=== PATIENT | female | born 1990 | race Caucasian/White ===

== ENCOUNTER 2024-02-16 03:27 | Outpatient (CLI) | payer MEDICAID, SELFPAY ==
[2024-02-16 15:44] LABS: Abs Immature Grans 0.04 10^3/uL (0.0-0.06); Absolute Basophil Count 0.02 10^3/uL (0.0-0.2); Absolute Eosinophil Count 0.07 10^3/uL (0.0-0.7); Absolute Lymphocyte Count 2.07 10^3/uL (1.2-3.4); Absolute Monocyte Count 0.84 10^3/uL (0.1-0.8); Basophils % 0.2 %; Eosinophils % 0.6 %; HCT 36.5 % (36.0-46.0); HGB 12.1 g/dL (11.2-15.7); Immature Grans % 0.4 %; MCH 31.3 pg (27.0-33.0); MCHC 33.2 % (32.0-36.0); MCV 94 fL (80-95); MPV 10.2 fL (8.0-11.0); Monocytes % 7.7 %; Neutrophils % 72.1 %; Platelet Count 229 10^3/uL (130-400); RBC 3.87 10^6/uL (3.93-5.22); RDW 12.9 % (11.7-14.6); RDW-SD 44.1 fL; WBC 10.92 10^3/uL (4.4-10.8)
[2024-02-16 15:50] LABS: Glucose,1 Hr (Glucola) 82 mg/dL (80-140)
[2024-02-16 16:10] LABS: Absolute Neutrophil Count 7.87 10^3/uL (1.2-6.7)
[2024-02-16 16:22] LABS: COMMENT (LAB VIEW ONLY) 102.68 mg/dL; PROTEIN 11.1 mg/dL
[2024-02-16 18:03] LABS: ALT 19 U/L (14-59); AST 12 U/L (15-37); Albumin 2.8 g/dL (3.4-5.0); Alkaline Phosphatase 99 U/L (46-116); Anion Gap 8.1 mmol/L (3-11); BUN 10 mg/dL (7-18); CO2 25.9 mmol/L (21.0-32.0); CREATININE 0.6 mg/dL (0.55-1.02); Calcium 8.8 mg/dL (8.5-10.1); Chloride 102 mmol/L (98-107); Estimated GFR 122.99 (mL/min/1.73m2); Glucose 70 mg/dL (74-106); Potassium 3.7 mmol/L (3.5-5.1); Sodium 136 mmol/L (136-145); Total Protein 6.5 g/dL (6.4-8.2); Uric Acid 3.7 mg/dL (2.6-6.0)
== END 2024-02-16 03:28 | disposition home or self-care (01) ==
LOC: LBO 03:28
PROVIDERS: Visit Provider Midwife
DX: Z3A.28 28 weeks gestation of pregnancy (principal); Z13.1 Encounter for screening for diabetes mellitus; Z86.39 Personal history of other endocrine, nutritional and metabolic disease
CPT/HCPCS: 36415; 80053; 82950; 82565; 84156; 84550; 85025

== ENCOUNTER 2024-03-22 07:56 | Outpatient (CLI) | payer MEDICAID, SELFPAY ==
[2024-03-22 18:49] VITALS: BP 126/82; PULSE 90; TEMP 36.7
--- NOTE | 2024-03-23 08:51 | W.OBNST ---
Date of service: 03/23/24 Time of Service: 19:00 NST Evaluation Reason for NST Reasons for Nonstress Test: OTHER, SEE COMMENT Reason for NST Other: Obesity in Gestational Age Gestational Age in Weeks and Days: 34 Weeks and 3Days Test and Monitor Explained Test/Monitor Explained: Test Explained, Monitor Explained and Patient Verbalized Understanding Vital Signs Blood Pressure: 126/82 Pulse: 90 Temperature: 98.1 F Urine Results Urine Protein: Negative Urine Ketones: Negative Urine Glucose: Negative Urine Blood: Negative NST Information Date on Monitor: 03/22/24 Time on Monitor: 17:50 Date off Monitor: 03/22/24 Time off Monitor: 18:41 Total Time on Monitor: 51 NST Interventions: PO Hydration Contraction Frequency: None NST Evaluation Patient States Movement: Present FHR Baseline: 125 Variability: Moderate 6-25 bpm Accelerations: 15x15 Decelerations: None NST Results: Reactive Note Ultrasound Done: N/A. NST Note NST Reviewed and Verified by: Verenice Dugan
[2024-03-23 08:53] VITALS: BP 126/82; PULSE 90; TEMP 36.7
== END 2024-03-22 18:56 ==
LOC: BCD 08:00 → OBS 17:45
PROVIDERS: Visit Provider Obstetrics & Gynecology
DX: O99.213 Obesity complicating pregnancy, third trimester (principal); Z3A.34 34 weeks gestation of pregnancy
CPT/HCPCS: 59025

== ENCOUNTER 2024-03-29 07:50 | Outpatient (CLI) | payer MEDICAID, SELFPAY ==
[2024-03-29 18:34] VITALS: BP 134/84; PULSE 91; TEMP 37
--- NOTE | 2024-03-29 18:42 | W.OBNST ---
Date of service: 03/29/24 Time of Service: 18:42 NST Evaluation Reason for NST Reasons for Nonstress Test: OTHER, SEE COMMENT Reason for NST Other: Homerbirth Delivery Gestational Age Gestational Age in Weeks and Days: 35 Weeks and 4Days Vital Signs Blood Pressure: 134/84 Pulse: 91 Temperature: 98.6 F Urine Results Urine Protein: Negative Urine Ketones: Negative Urine Glucose: Negative Urine Blood: Negative NST Evaluation FHR Baseline: 145 NST Results: Questionable Note Ultrasound Done: Biophysical Profile Reason for Biophysical Profile: Non Reactive NST and Hypertension. Provider that performed the study: Kristi Guzman Is this a repeat study?: No Amniotic Fluid: 2 Largest Vertical Pocket: 7.3 Muscle Tone: 2 Body Movements: 2 Breathing Movements: 2 NST Results: Questionable Total Biophysical Profile Score: 8 Other Pertinent Findings: Presentation (Transverse) Coding for Biophysical Profile w/NST: Completed Exam, ANAY (13.2) Coding for ANAY w/NST: Completed Exam and Presentation Coding for Presentation w/NST: Completed Exam. NST Note Note: Inclusive nonstress test due to body habitus and baby movement. Biophysical profile performed at 8 out of 8. Appropriate amniotic fluid with deepest vertical pocket of 7.3. Baby is in the transverse head to the left position. NST Reviewed and Verified by: Kristi Guzman
[2024-03-29 18:44] VITALS: BP 134/84; PULSE 91; TEMP 37
== END 2024-03-29 18:45 ==
LOC: BCD 07:59 → OBS 17:58
PROVIDERS: Visit Provider Obstetrics & Gynecology Gynecology
DX: O36.8330 Maternal care for abnormalities of the fetal heart rate or rhythm, third trimester, not applicable or unspecified (principal); O16.3 Unspecified maternal hypertension, third trimester; Z3A.35 35 weeks gestation of pregnancy
CPT/HCPCS: 59025; 76818

== ENCOUNTER 2024-04-05 07:34 | Outpatient (CLI) | payer MEDICAID, SELFPAY ==
[2024-04-05 19:03] VITALS: BP 110/73; PULSE 92; TEMP 36.8
--- NOTE | 2024-04-06 10:25 | W.OBNST ---
Date of service: 04/05/24 Time of Service: 19:00 NST Evaluation Reason for NST Reasons for Nonstress Test: OTHER, SEE COMMENT Reason for NST Other: well being Gestational Age Gestational Age in Weeks and Days: 36 Weeks and 3Days Test and Monitor Explained Test/Monitor Explained: Test Explained Vital Signs Blood Pressure: 110/73 Pulse: 92 Temperature: 98.2 F NST Information Date on Monitor: 04/05/24 Time on Monitor: 17:55 Date off Monitor: 04/05/24 Time off Monitor: 18:25 Total Time on Monitor: 30 NST Interventions: None NST Evaluation Patient States Movement: Present FHR Baseline: 135 Variability: Absent Accelerations: 15x15 Decelerations: None NST Results: Reactive Note Ultrasound Done: Biophysical Profile Reason for Biophysical Profile: Equivocal NST. Provider that performed the study: Althea Harris Is this a repeat study?: Yes Amniotic Fluid: 2 Largest Vertical Pocket: 4.6 Muscle Tone: 2 Body Movements: 2 Breathing Movements: 2 NST Results: Reactive Total Biophysical Profile Score: 10 Other Pertinent Findings: Presentation (transverse. Head maternal L) Coding for Biophysical Profile w/NST: Completed Exam and ANAY Indication: Other Largest Vertical Pocket: 4.6 Total ANAY: 13.6 Other Pertinent Findings: Presentation (transverse lie. head maternal L ) Coding for ANAY w/NST: Completed Exam. NST Note Note: Pt will continue with weekly BPP NST Reviewed and Verified by: Althea Harris
[2024-04-06 10:26] VITALS: BP 110/73; PULSE 92; TEMP 36.8
== END 2024-04-05 18:20 | disposition home health service (06) ==
LOC: BCD 07:35 → OBS 18:05
PROVIDERS: Visit Provider Obstetrics & Gynecology Gynecology
DX: O36.8130 Decreased fetal movements, third trimester, not applicable or unspecified (principal); Z3A.36 36 weeks gestation of pregnancy
CPT/HCPCS: 59025; 76818

== ENCOUNTER 2024-04-12 06:58 | Outpatient (CLI) | payer MEDICAID, SELFPAY ==
[2024-04-12 18:38] VITALS: BP 115/64; TEMP 37
--- NOTE | 2024-04-12 19:59 | W.OBNST ---
Date of service: 04/12/24 Time of Service: 19:00 NST Evaluation Reason for NST Reasons for Nonstress Test: OTHER, SEE COMMENT Reason for NST Other: BMI Gestational Age Gestational Age in Weeks and Days: 37 Weeks and 4Days Test and Monitor Explained Test/Monitor Explained: Test Explained and Monitor Explained Vital Signs Blood Pressure: 115/64 Temperature: 98.6 F NST Information Date on Monitor: 04/12/24 Time on Monitor: 18:36 Date off Monitor: 04/12/24 Time off Monitor: 18:57 Total Time on Monitor: 21 NST Interventions: None NST Evaluation Patient States Movement: Present FHR Baseline: 130 Variability: Moderate 6-25 bpm Accelerations: 15x15 Decelerations: None NST Results: Reactive Note Ultrasound Done: Presentation Presentation Results: Vertex with hand beside ear Coding for Presentation w/NST: Completed Exam. NST Note Note: Explained that the baby had a hand up beside it's head on the mom's right side. It was not presenting before the head but was near the level of the ear. NST Reviewed and Verified by: Verenice Dugan
[2024-04-12 20:01] VITALS: BP 115/64; TEMP 37
== END 2024-04-12 19:10 ==
LOC: BCD 07:02 → OBS 17:55
PROVIDERS: Visit Provider Obstetrics & Gynecology
DX: O26.893 Other specified pregnancy related conditions, third trimester (principal); Z36.89 Encounter for other specified antenatal screening; Z3A.37 37 weeks gestation of pregnancy
CPT/HCPCS: 59025; 76816

== ENCOUNTER 2024-04-19 17:44 | Outpatient (CLI) | payer MEDICAID, SELFPAY ==
[2024-04-19] VITALS (10 sets, daily range): BP systolic 115; BP diastolic 60; PULSE 68–102; RESP 18; TEMP 37; O2SAT 96–97
--- NOTE | 2024-04-27 14:51 | PDOC.NST_ITS ---
Date of service: 04/19/24 Time of Service: 18:30 NST Evaluation Reason for NST Reasons for Nonstress Test: OTHER, SEE COMMENT Reason for NST Other: Obesity Gestational Age Gestational Age in Weeks and Days: 38 Weeks and 3Days Test and Monitor Explained Test/Monitor Explained: Test Explained, Monitor Explained and Patient Verbalized Understanding Urine Results Urine Protein: Negative Urine Ketones: Negative Urine Glucose: Negative Urine Blood: Negative NST Information Date on Monitor: 04/19/24 Time on Monitor: 18:24 Date off Monitor: 04/19/24 Time off Monitor: 19:03 Total Time on Monitor: 39 NST Interventions: None NST Evaluation Patient States Movement: Present FHR Baseline: 125 Variability: Moderate 6-25 bpm Accelerations: 15x15 Decelerations: None NST Results: Reactive Note Ultrasound Done: N/A. 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 At [facility] for NST only. NST Reviewed and Verified by: Verenice Dugan
== END 2024-04-19 19:15 | disposition other institution (70) ==
LOC: BCD 17:46 → OBS 18:17
PROVIDERS: Visit Provider Obstetrics & Gynecology
DX: O99.213 Obesity complicating pregnancy, third trimester (principal); Z3A.38 38 weeks gestation of pregnancy
CPT/HCPCS: 59025

== ENCOUNTER 2024-04-26 07:15 | Outpatient (CLI) | payer MEDICAID, SELFPAY ==
[2024-04-26 18:04] VITALS: BP 130/64; PULSE 90; TEMP 37.2
--- NOTE | 2024-04-26 19:08 | PDOC.NST_ITS ---
Date of service: 04/26/24 Time of Service: 19:08 NST Evaluation Reason for NST Reasons for Nonstress Test: OTHER, SEE COMMENT (obesity affecting ) Gestational Age Gestational Age in Weeks and Days: 38 Weeks and 3Days Test and Monitor Explained Test/Monitor Explained: Test Explained, Monitor Explained and Patient Verbalized Understanding NST Information Date on Monitor: 04/26/24 Time on Monitor: 18:45 Date off Monitor: 04/26/24 Time off Monitor: 19:00 Total Time on Monitor: 15 NST Interventions: Reposition Patient and Other (unable to monitor FHR continuously secondary to pt's body habitus and movement.) Contraction Frequency: Not monitored. NST Evaluation NST Results: Non-Reactive (unable to properly monitor fetus secondary to maternal habitus) Note Ultrasound Done: Biophysical Profile Reason for Biophysical Profile: Non Reactive NST. Provider that performed the study: Althea Harris Is this a repeat study?: Yes Amniotic Fluid: 2 (13.6cm) Largest Vertical Pocket: 4.6 Muscle Tone: 2 Body Movements: 2 Breathing Movements: 2 NST Results: Non-Reactive (unable to properly monitor fetus secondary to maternal habitus) Total Biophysical Profile Score: 8 Other Pertinent Findings: Heart Rate (140) and Presentation (vertex) Coding for Biophysical Profile w/NST: Completed Exam, ANAY Coding for ANAY w/NST: Completed Exam and Presentation Coding for Presentation w/NST: Completed Exam. NST Note Note: Pt presented for routine surveillance 2/2 maternal body habitus. Bedside TA u/s was performed to confirm vertex presentation. Nl ANAY. Nl BPP. Pt will continue weeky surveillance on [facility] and continue to be followed by Classification Analyst NST Reviewed and Verified by: Althea Harris
== END 2024-04-26 18:20 ==
LOC: BCD 07:16 → OBS 17:50
PROVIDERS: Visit Provider Obstetrics & Gynecology
DX: O99.213 Obesity complicating pregnancy, third trimester (principal); O36.8330 Maternal care for abnormalities of the fetal heart rate or rhythm, third trimester, not applicable or unspecified; Z3A.38 38 weeks gestation of pregnancy
CPT/HCPCS: 59025; 76818; 99211; G0378

== ENCOUNTER 2024-05-05 15:06 | Outpatient (CLI) | payer MEDICAID, SELFPAY ==
[2024-05-05 15:10] VITALS: BP 128/82; PULSE 84; TEMP 36.7
== END 2024-05-05 15:47 ==
LOC: BCD 15:08 → OBS 15:09
PROVIDERS: Visit Provider Obstetrics & Gynecology Gynecology
DX: O48.0 Post-term pregnancy (principal); Z3A.40 40 weeks gestation of pregnancy
CPT/HCPCS: 59025